=== PATIENT | male | born 1945 | race Caucasian/White ===

== ENCOUNTER 2023-02-16 11:54 | Day surgery (SDC) | payer MEDICARE, BC ==
[~2023-02-16 11:54] MED LIST: Cefuroxime 10 MG/ML SYRINGE EYELF SCH; Lidocaine 1% PF 2 ML SDV INJECT SCH; Pilocarpine 4% Ophth Soln 15 ML Bot EYELF SCH
[2023-02-16] MEDS: Polymyxin B/Trimethoprim 10 ML Bottle EYELF SCH ×3 (12:30→14:20)
[2023-02-16] MEDS: Brimonidine 0.2% Ophth Soln 5 ML Bottle EYELF SCH ×3 (12:41→14:20)
[2023-02-16] MEDS: Phenylephrine 2.5% Ophth Soln 2 ML Bot EYELF SCH ×5 (12:44→13:58)
[2023-02-16] MEDS ORDERED: Ondansetron 4 MG/2 ML SDV IVPUSH PRN (12:44)
[2023-02-16] MEDS: Tropicamide 1% Ophth Soln 15 ML Bottle EYELF SCH ×4 (12:50→13:32)
[2023-02-16] MEDS: Tetracaine HCl/PF 0.5% 4 ML Bottle EYEBOTH SCH ×4 (13:39→14:06)
== END 2023-02-16 14:30 ==
LOC: JD.SDS 11:54
PROVIDERS: ATTEND Ophthalmology
DX: H25.813 Combined forms of age-related cataract, bilateral (principal); H18.413 Arcus senilis, bilateral; H21.81 Floppy iris syndrome; H53.71 Glare sensitivity; I10 Essential (primary) hypertension; K21.9 Gastro-esophageal reflux disease without esophagitis; Z79.899 Other long term (current) drug therapy; Z79.82 Long term (current) use of aspirin
CPT/HCPCS: 66982; A9270; J0697; V2788; J3490

== ENCOUNTER 2023-03-23 11:19 | Day surgery (SDC) | payer MEDICARE, BC ==
[~2023-03-23 11:19] MED LIST changes: -Cefuroxime 10 MG/ML SYRINGE EYELF SCH; +Cefuroxime 10 MG/ML SYRINGE EYERT SCH; -Pilocarpine 4% Ophth Soln 15 ML Bot EYELF SCH; +Pilocarpine 4% Ophth Soln 15 ML Bot EYERT SCH
[2023-03-23] MEDS: Polymyxin B/Trimethoprim 10 ML Bottle EYERT SCH ×3 (12:28→14:19)
[2023-03-23] MEDS: Brimonidine 0.2% Ophth Soln 5 ML Bottle EYERT SCH ×3 (12:34→14:19)
[2023-03-23] MEDS: Phenylephrine 2.5% Opth Drops 10 mL EYERT SCH ×5 (12:40→13:57)
[2023-03-23] MEDS ORDERED: Ondansetron 4 MG/2 ML SDV IVPUSH PRN (12:42)
[2023-03-23] MEDS: Tropicamide 1% Ophth Soln 15 ML Bottle EYERT SCH ×4 (12:44→13:23)
[2023-03-23] MEDS: Tetracaine HCl/PF 0.5% 4 ML Bottle EYEBOTH SCH ×6 (12:49→14:05)
== END 2023-03-23 14:30 | disposition home or self-care (01) ==
LOC: JD.SDS 11:19
PROVIDERS: ATTEND Ophthalmology
DX: H25.811 Combined forms of age-related cataract, right eye (principal); H21.81 Floppy iris syndrome; H21.41 Pupillary membranes, right eye; I10 Essential (primary) hypertension; K21.9 Gastro-esophageal reflux disease without esophagitis; N40.0 Benign prostatic hyperplasia without lower urinary tract symptoms; Z98.890 Other specified postprocedural states; Z79.899 Other long term (current) drug therapy; Z79.82 Long term (current) use of aspirin
CPT/HCPCS: 66982; A9270; J0697; V2632; J3490